=== PATIENT | female | born 1955 | race Caucasian/White ===

== ENCOUNTER 2022-10-20 09:00 | Outpatient (RCR) | payer MEDICARE, BC, SELFPAY | END 2022-10-20 11:13 | disposition home or self-care (01) | PROVIDERS: Visit Provider Podiatrist | DX: M76.811 Anterior tibial syndrome, right leg (principal); M25.571 Pain in right ankle and joints of right foot; R26.2 Difficulty in walking, not elsewhere classified; Z51.89 Encounter for other specified aftercare | CPT/HCPCS: 97110; 97112; 97140; 97162 ==

== ENCOUNTER 2024-04-28 09:07 | Emergency (ER) | payer MEDICARE, BC, SELFPAY ==
[2024-04-28 09:13] VITALS: BP 153/80; PULSE 98; RESP 20; TEMP 36; O2SAT 98; BMI 11.7
--- NOTE | 2024-04-28 09:23 | CRLHL7_ITS ---
For Patients: As a result of the Cures Act, medical imaging exams and procedure reports are released immediately into your electronic medical record. You may view this report before your referring provider. If you have questions, please contact your health care provider. INDICATION: injury; left sided rib pain, patient reported anterior pain under left breast; patient hurt ribs 1 week ago, they were outside blowing leaves yesterday and felt they pulled something and reinjured the left side COMPARISON: None. TECHNIQUE: Four views chest and left ribs. FINDINGS: No acute or healing rib fractures. No focal or diffuse lung opacities. No pneumothorax. No pleural effusion. IMPRESSION: Normal chest and left rib radiographs. Dictated by Ofelia Valerio MD @ 04/28/2024 9:58:00 AM (Electronically Signed)
[2024-04-28 09:51] VITALS: PULSE 75; O2SAT 96
[2024-04-28 10:00] VITALS: PULSE 73; O2SAT 97
--- NOTE | 2024-04-28 10:07 | ED_ITS ---
HPI - General Adult General Chief complaint: Rib Pain Stated complaint: Shooting abdominal pain Time Seen by Provider: 04/28/24 10:17 History of Present Illness HPI narrative: This 68-year-old female comes in with pain in her left lateral inferior ribs. She states that she was attempting to raise a window 5 days ago and had sudden onset of discomfort with that strenuous activity. She did not fall or hit herself. She states that that pain is increased day by day. She reports disti nct pain when taking a deep breath, sneezing, coughing, or with certain activities. She also has pain when palpating over her left lower anterior ribs. She arrives here with normal vital signs. He Related Data Home Medications ?Medication ?Instructions ?Recorded ?Confirmed hydrochlorothiazide 25 mg tablet 25 mg PO DAILY 04/28/24 04/28/24 lisinopril 5 mg tablet 5 mg PO DAILY 04/28/24 04/28/24 Previous Rx's ?Medication ?Instructions ?Recorded ketorolac 10 mg tablet 10 mg PO Q8H 5 days #15 tabs 04/28/24 Allergies Allergy/AdvReac Type Severity Reaction Status Date / Time yellow dye Allergy Unknown Verified 04/28/24 09:17 morphine AdvReac Severe Vomiting Verified 04/28/24 09:17 Review of Systems Status of ROS: Reports: 10 or more systems reviewed and unremarkable except as noted in History and below Narrative: Constitutional: No fevers, no weight gain or loss. Eyes: No discharge. No vision changes. HENT: No congestion, no sore throat, no ear pain. Cardiovascular: No chest pain, no palpitations. Respiratory: No shortness of breath, no wheezes, no cough. Gastrointestinal: No abdominal pain, no vomiting, no diarrhea. Genitourinary: No dysuria, no hematuria. Musculoskeletal: Normal range of motion. Skin: No rashes, no pruritis. Neurological: No dizziness, weakness, sensory change, speech change. Endo/Heme/Allergies: No bruising or bleeding. No polydipsia. Pysch: no suicidality, no anxiety, no insomnia. All other systems reviewed and are negative. PFSH PFSH Social History Smoking Status: Never smoker How often do you have a drink containing alcohol: monthly or less AUDIT-C Alcohol total score: 1 Non-prescribed substance use: denies use Exam Narrative: Exam Narrative: Constitutional: Well-developed, well-nourished, no acute distress. HEENT: Normocephalic, atraumatic. Neck: Normal range of motion. Nontender. Supple. Heart: Regular. No murmurs. Normal rate. Intact distal pulses. Lungs: Clear to auscultation. No wheezes, rhonchi, or rales. Chest: Distinct tenderness when palpating over the left lower anterior ribs below the left breast. No sign of bruising or swelling. Abdomen: Normal bowel sounds. Nontender. No rebound tenderness. Genitalia: Deferred. Back: No midline tenderness. Normal range of motion. Extremities: Normal range of motion. No injury. Skin: Intact. No rash. Warm. No erythema or pallor. Neurologic: No altered sensation. No weakness. Alert and oriented. Psychiatric: No suicidality. No anxiety or depression. No insomnia. Nursing notes and vitals signs are reviewed. Const: Vital Signs, click to edit/add: Vital Signs - 24 hr 04/28/24 09:13 Temperature 96.8 F L Pulse Rate [Pulse Oximeter] 98 Respiratory Rate 20 Blood Pressure [Ri ght Upper Arm] 153/80 H Pulse Oximetry 98 Oxygen Delivery Me thod Room Air Course Vital Signs Vital signs: Initial Vital Signs Temperature 96.8 F L 04/28/24 09:13 Temperature Source Temporal Artery Scan 04/28/24 09:13 Pulse Rate 98 04/28/24 09:13 Respiratory Rate 20 04/28/24 09:13 Blood Pressure 153/80 H 04/28/24 09:13 Blood Pressure Mean 104 04/28/24 09:13 Blood Pressure Position Semi-Fowlers 04/28/24 09:13 Pulse Oximetry 98 04/28/24 09:13 Oxygen Delivery Method Room Air 04/28/24 09:13 Vital Signs Temperature 96.8 F L 04/28/24 09:13 Pulse Rate 98 04/28/24 09:13 Respiratory Rate 20 04/28/24 09:13 Blood Pressure 153/80 H 04/28/24 09:13 Pulse Oximetry 98 04/28/24 09:13 Oxygen Delivery Method Room Air 04/28/24 09:13 Temperature 96.8 F L 04/28/24 09:13 Pulse Rate 98 04/28/24 09:13 Respiratory Rate 20 04/28/24 09:13 Blood Pressure 153/80 H 04/28/24 09:13 Pulse Oximetry 98 04/28/24 09:13 Oxygen Delivery Method Room Air 04/28/24 09:13 Medical Decision Making MDM Narrative Medical decision making narrative: This patient comes in with chest wall pain in her left lower anterior ribs. A rib detail x-ray is obtained and shows no sign of fracture or pneumothorax. The patient's vital signs are normal and her exam is also normal. She did not fall or have a mechanism of injury that would cause bruising or contusion. Most likely this is strain of her intercostal muscles. She did receive a prescription for Toradol. Imaging Data Chest x-ray: Radiologist's impression: FINDINGS: No acute or healing rib fractures. No focal or diffuse lung opacities. No pneumothorax. No pleural effusion. IMPRESSION: Normal chest and left rib radiographs. Discharge Plan Discharge Clinical Impression: Acute chest wall pain Additional Instructions: Take medication as needed and directed. Increase activity as tolerated. Follow up with MD return if worsening. Prescriptions: New ketorolac 10 mg tablet 10 mg PO Q8H 5 Days Qty: 15 0RF No Action lisinopril 5 mg tablet 5 mg PO DAILY hydrochlorothiazide 25 mg tablet 25 mg PO DAILY Follow Up/Referrals: Provider,Not a Local [Primary Care Provider] -
== END 2024-04-28 10:34 | disposition home or self-care (01) ==
PROVIDERS: Emergency Provider Emergency Medicine Emergency Medical Services
DX: R07.9 Chest pain, unspecified (principal)
CPT/HCPCS: 71101; 99284